=== PATIENT | female | born 1965 | race Caucasian/White ===

== ENCOUNTER → 2016-08-14 | Outpatient (CLI) | payer OTHER | LOC: FIMAGING 16:11 | DX: Z12.31 Encounter for screening mammogram for malignant neoplasm of breast (principal); Z85.43 Personal history of malignant neoplasm of ovary | CPT/HCPCS: G0202 ==

== ENCOUNTER → 2017-10-28 | Outpatient (CLI) | payer OTHER | LOC: FIMAGING 09:41 | PROVIDERS: ATTEND Internal Medicine | DX: Z12.31 Encounter for screening mammogram for malignant neoplasm of breast (principal) ==